=== PATIENT | male | born 1965 | race Caucasian/White ===

== ENCOUNTER 2017-10-08 11:36 | Inpatient (IN) ==
[2017-10-08 12:24] LABS: Basophils % 0.2 % (0.0-0.8); Eosinophils % 0.1 % (0.00-10.9); Hemoglobin 12.2 GM/DL (14.0-18.0); Immature Granulocytes % 1.1 %; Lymphocytes % 5.5 % (21.2-54.2); Mean Corpuscular HGB Conc 30.5 GM/DL (32-36); Mean Corpuscular Hemoglobin 29 PG (27-34); Mean Corpuscular Volume 96.4 FL (87-102); Mean Platelet Volume 11.9 FL (9.6-12.0); Monocytes # 0.6 10*3/uL (0.11-0.8); Monocytes % 3.7 % (1.7-12.7); Neutrophils # 15.6 10*3/uL (1.4-7.4); Neutrophils % 89.4 % (38.7-73.9); Platelet Count 265 T/CUMM (130-400); Red Blood Count 4.15 MC/CUMM (3.8-5.5); Red Cell Distribution Width 15.2 % (9.3-17.3); White Blood Count 17.4 T/CUMM (4-12)
[2017-10-08 12:55] LABS: Alanine Aminotransferase 230 U/L (16-61); Albumin 3.6 G/DL (3.4-5.0); Alkaline Phosphatase 113 U/L (45-117); Aspartate Amino Transferase 211 U/L (0-37); Blood Urea Nitrogen 53 MG/DL (7-18); Calcium 9.4 MG/DL (8.5-10.1); Glucose 217 MG/DL (74-106); Magnesium 2.5 MG/DL (1.8-2.4); Osmolality,Calculated 288.2 MOS/KG (273-304); Potassium 5.7 MMOL/L (3.5-5.1); Sodium 134 MMOL/L (136-145); Total Protein 8.2 G/DL (6.4-8.3); Troponin I Only 0.081 NG/ML (0.00-0.045)
[2017-10-08 12:59] LABS: PT Patient Result 10.7 SECS; Partial Thromboplastin Time 27.1 SECS (0-40)
[2017-10-08 14:40] LABS: Apearance,Urine Slightly Hazy (Clear); Bacteria,Urine Occasional /HPF (Few); Bilirubin,Urine Negative (Negative); Blood, Urine Moderate mg/dL (Negative); Glucose,Urine (UA) Negative (Negative); Hyaline Casts,Urine 44 /LPF (0-3); Ketones,Urine 5 mg/dL (Negative); Mucus,Urine Occasional /LPF (Occasional); Nitrite,Urine Negative (Negative); Protein,Urine 100 MG/DL; RBC,Urine 1 /HPF (0-4); Squamous Epithelial Cell,Urine Occasional /HPF (0-10); Urine Color Amber (Yellow); Urine Specific Gravity 1.017 (1.001-1.035); WBC,Urine 3 /HPF (0-6)
[2017-10-08 14:53] LABS: Barbiturates Screen,Urine Negative (Negative); Benzodiazepines Screen,Urine Positive (Negative); Cannabinoid Screen,Urine Negative (Negative); Opiate Screen,Urine Positive (Negative); Phencyclidine Screen,Urine Negative (Negative)
[2017-10-08] MEDS ORDERED: diphenhydrAMINE CAP 25 MG CAPSULE PO PRN (15:06)
[2017-10-08] MEDS ORDERED: guaiFENesin/DM ER 600-30 MG TABLET PO PRN (15:06)
[2017-10-08] MEDS ORDERED: ONDANSETRON 4 MG/2 ML VIAL IV PRN (15:06)
[2017-10-08] MEDS ORDERED: DOCUSATE SODIUM 100 MG CAPSULE PO PRN (15:06)
[2017-10-08] MEDS ORDERED: ACETAMINOPHEN 325 MG TABLET PO PRN (15:06)
[2017-10-08] MEDS ORDERED: LABETALOL 20 MG/4 ML SYRINGE IV PRN (15:15)
[2017-10-08 15:21] LABS: Ammonia < 10 UMOL/L (11-32)
[2017-10-08] MEDS ORDERED: ASPIRIN EC 81 MG TABLET PO SCH (15:30)
[2017-10-08] MEDS ORDERED: ENOXAPARIN 30 MG/0.3 ML SYRINGE SUBCUT SCH (15:30)
[2017-10-08 15:53] LABS: Risk Ratio 4.61; Thyroid Stimulating Hormone 0.391 uIU/ml (0.358-3.74); VLDL CHOLESTEROL 14.6 MG/DL
[2017-10-08] MEDS ORDERED: LEVOFLOXACIN INJ 750 MG in PREMIX 1 EACH IV SCH (17:00)
[2017-10-08] MEDS: ASPIRIN EC 81 MG TABLET PO SCH (19:54)
[2017-10-08] MEDS: CITALOPRAM 20 MG TABLET PO SCH (19:54)
[2017-10-08] MEDS: CLORAZEPATE 3.75 MG TABLET PO SCH ×2 (19:55→22:00)
[2017-10-08] MEDS: PANTOPRAZOLE 40 MG TABLET PO SCH (19:55)
[2017-10-08] MEDS: CLOPIDOGREL 75 MG TABLET PO SCH (19:55)
[2017-10-08] MEDS: SODIUM CHLORIDE 0.9% 1,000 ML IV SCH (20:03)
[2017-10-08] MEDS ORDERED: ATORVASTATIN 40 MG TABLET PO SCH ×2 (21:00)
[2017-10-08] MEDS ORDERED: SODIUM POLYSTYRENE SULFATE 15 GM/60 ML BOTTLE PO ONE (21:24)
[2017-10-08] MEDS: CARVEDILOL 3.125 MG TABLET PO SCH (21:34)
[2017-10-09 04:39] LABS: Basophils # 0.1 10*3/uL (0.0-0.2); Basophils % 0.4 % (0.0-0.8); Eosinophils # 0.2 10*3/uL (0.0-0.87); Eosinophils % 1.3 % (0.00-10.9); Hematocrit 32.8 VOL% (42.0-52.0); Hemoglobin 10.9 GM/DL (14.0-18.0); Immature Granulocytes % 0.6 %; Immature Granulocytes Absolute 0.08 #; Lymphocytes # 1.9 10*3/uL (1.4-4.0); Lymphocytes % 14.1 % (21.2-54.2); Mean Corpuscular HGB Conc 33.2 GM/DL (32-36); Mean Corpuscular Hemoglobin 30 PG (27-34); Mean Corpuscular Volume 89.6 FL (87-102); Mean Platelet Volume 12.5 FL (9.6-12.0); Monocytes # 1.2 10*3/uL (0.11-0.8); Monocytes % 8.8 % (1.7-12.7); Neutrophils # 10.1 10*3/uL (1.4-7.4); Neutrophils % 74.8 % (38.7-73.9); Platelet Count 257 T/CUMM (130-400); Red Blood Count 3.66 MC/CUMM (3.8-5.5); Red Cell Distribution Width 14.7 % (9.3-17.3); White Blood Count 13.6 T/CUMM (4-12)
[2017-10-09 05:21] LABS: Albumin 3.1 G/DL (3.4-5.0); Bilirubin,Total 0.9 MG/DL (0.2-1.0); Calcium 8.8 MG/DL (8.5-10.1); Magnesium 2.5 MG/DL (1.8-2.4); Osmolality,Calculated 292.4 MOS/KG (273-304); Total Protein 6.6 G/DL (6.4-8.3)
[2017-10-09] MEDS: CLORAZEPATE 3.75 MG TABLET PO SCH (06:24)
[2017-10-09] MEDS: PANTOPRAZOLE 40 MG TABLET PO SCH (08:42)
[2017-10-09] MEDS: SODIUM CHLORIDE 0.9% 1,000 ML IV SCH ×2 (08:42)
[2017-10-09] MEDS: ASPIRIN EC 81 MG TABLET PO SCH (08:42)
[2017-10-09] MEDS: CITALOPRAM 20 MG TABLET PO SCH (08:42)
[2017-10-09] MEDS: CLOPIDOGREL 75 MG TABLET PO SCH (08:42)
[2017-10-09] MEDS: CARVEDILOL 3.125 MG TABLET PO SCH (08:42)
[2017-10-09 09:16] VITALS: BP 143/82
[2017-10-09] MEDS ORDERED: ENOXAPARIN 40 MG/0.4 ML SYRINGE SUBCUT SCH (15:00)
== END 2017-10-09 12:05 | disposition home or self-care (01) | DRG 683 ==
LOC: EDUNIT# → N.ED 11:36 → N.EDINP 15:06 → N.TELES 16:00